=== PATIENT | male | born 1950 | race Caucasian/White ===

== ENCOUNTER → 2023-08-06 07:05 | Outpatient (REF) | payer MEDICARE, SELFPAY | LOC: EMG 07:05 | PROVIDERS: ATTENDING PHYSICIAN Orthopaedic Surgery | DX: R20.0 Anesthesia of skin (principal) | CPT/HCPCS: 95886; 95911 ==

== ENCOUNTER → 2023-09-20 07:10 | Outpatient (REF) | payer MEDICARE, SELFPAY | LOC: PAVMRI 07:10 | PROVIDERS: ATTENDING PHYSICIAN Orthopaedic Surgery; FAMILY PHYSICIAN Internal Medicine Geriatric Medicine | DX: M54.12 Radiculopathy, cervical region (principal) | CPT/HCPCS: 72141 ==